=== PATIENT | male | born 1945 | race African-American/Black ===

== ENCOUNTER 2018-11-02 05:35 | Emergency (ER) | payer SELFPAY ==
[2018-11-02 05:52] VITALS: BMI 23.7
--- NOTE | 2018-11-02 05:57 | PDOC ---
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 Patient states that he isn't sure where he is and how he got here but he wanted to come visit his son who is leaving to [place] soon. Patient is a resident of [place] and took the train down here. Says that he was with a group of people on the train but then lost track of them and lost his way. He denies any complaints whatsoever. Denies any medications. 11/02/18 06:17 Past History - Past Medical History COPD: No Other medical history: CVA - Suicide/Smoking/Psychosocial Hx Smoking History: Unknown if ever smoked Review of Systems - Review of Systems Constitutional: No: Chills, Diaphoresis, Fever, Loss of Appetite HEENTM: No: Blurred Vision, Tearing Respiratory: No: Cough, Orthopnea, Shortness of Breath Cardiac (ROS): No: Chest Pain, Irregular Heart Rate, Lightheadedness, Syncope, Chest Tightness ABD/GI: No: Diarrhea, Nausea, Vomiting : No: Dysuria, Discharge, Frequency Musculoskeletal: Yes: Joint Stiffness, Other (right UE contracture with paralysis) Neurological: Yes: Pre-Existing Deficit, Other (confused). No: Headache, Numbness Psychiatric: Yes: Other (confused) *Physical Exam - Vital Signs Last Vital Signs Temp Pulse Resp BP Pulse Ox 91.7 F L 110 H 16 110/62 72 L 11/02/18 05:38 11/02/18 05:38 11/02/18 05:38 11/02/18 05:38 11/02/18 05:38 - Physical Exam General Appearance: Yes: Nourished, Appropriately Dressed. No: Apparent Distress HEENT: positive: EOMI, APPLE, Normal ENT Inspection, Normal Voice Neck: positive: Trachea midline, Normal Thyroid, Supple. negative: Tender, Rigid Respiratory/Chest: positive: Lungs Clear, Normal Breath Sounds. negative: Chest Tender, Respiratory Distress, Accessory Muscle Use Cardiovascular: positive: Regular Rhythm, Regular Rate Gastrointestinal/Abdominal: positive: Normal Bowel Sounds, Flat, Soft. negative : Tender Lymphatic: negative: Adenopathy, Tenderness Musculoskeletal: positive: Muscle Spasm (right upper extremity contracted and pulled toward his chest). negative: Normal Inspection Extremity: positive: Normal Capillary Refill, Coldness. negative: Normal Inspection (per above), Normal Range of Motion Integumentary: positive: Normal Color, Dry, Cold, Other Neurologic: positive: Alert, Normal Mood/Affect, Normal Response, Motor Strength 5/5 (with exception of left upper extremity). negative: Fully Oriented (AO to person only) Moderate Sedation - Procedure Monitoring Vital Signs: Procedure Monitoring Vital Signs Temperature 91.7 F L 11/02/18 05:38 Pulse Rate 110 H 11/02/18 05:38 Respiratory Rate 16 11/02/18 05:38 Blood Pressure 110/62 11/02/18 05:38 O2 Sat by Pulse Oximetry (%) 72 L 11/02/18 05:38 *DC/Admit/Observation/Transfer Diagnosis at time of Disposition: Hypothermia Qualifiers: Encounter type: initial encounter Qualified Code(s): T68.XXXA - Hypothermia, initial encounter - Discharge Dispostion Disposition: HOME - Referrals Referrals: [facility] [Provider Group] - Patient Instructions Printed Discharge Instructions: DI for Hypothermia Additional Instructions: Please make sure to stay indoors and coordinate appropriate pickup and drop off times from public transportation sites. Please follow up with your primary care physician in a week or feel free to walk into our clinic. Please return to the ED if you have new or worsening symptoms. - Post Discharge Activity
--- NOTE | 2018-11-02 06:28 | PDOC ---
Attending Attestation - Resident Resident Name: Faith Ovalles - ED Attending Attestation I have performed the following: I have examined & evaluated the patient, The case was reviewed & discussed with the resident, I agree w/resident's findings & plan - HPI HPI: 11/02/18 06:26 73-year-old male found wandering outside apparently confused with training tickets from [place], according to the ambulance crew there was a missing person report out on him. Patient admits that he cannot recall why he was wandering around in the street but does know where he lives and why he was in the area. He denies complaints or injury. - Physicial Exam PE: 11/02/18 06:27 Agree with resident's exam - Medical Decision Making 11/02/18 06:27 73-year-old male found wandering in the street Patient has amnesia to recent events, he is hypothermic on arrival Sepsis evaluation initiated as well as warming Case signed out to day shift for reevaluation and final disposition
[2018-11-02 07:10] VITALS: BP 136/83; PULSE 81; TEMP 97.2
== END 2018-11-02 07:09 | disposition home or self-care (01) ==
LOC: JER 05:35
DX: T68.XXXA Hypothermia, initial encounter (principal); I69.859 Hemiplegia and hemiparesis following other cerebrovascular disease affecting unspecified side
CPT/HCPCS: 71045-TC-FY; 82962; 99281-25